=== PATIENT | male | born 1965 | race Caucasian/White ===

== ENCOUNTER 2022-01-06 16:42 | Emergency (ER) | payer OTHER ==
[~2022-01-06] VITALS: Ht 193 cm; Wt 104.3 kg
[2022-01-06] MEDS ORDERED: ZESTRIL40 MG PO (19:59)
== END 2022-01-06 20:15 | disposition home or self-care (01) ==
LOC: ED 16:42
DX: S01.01XA Laceration without foreign body of scalp, initial encounter (principal); I10 Essential (primary) hypertension; W10.9XXA Fall (on) (from) unspecified stairs and steps, initial encounter
CPT/HCPCS: 70450; 99283-25